=== PATIENT | female | born 1950 | race Two or more races ===

== ENCOUNTER 2018-03-06 09:35 | Outpatient (CLI) | payer OTHER | END 2018-03-06 09:40 | disposition home or self-care (01) | LOC: RX STUDY 09:35 | DX: K44.9 Diaphragmatic hernia without obstruction or gangrene (principal); K57.30 Diverticulosis of large intestine without perforation or abscess without bleeding; K31.7 Polyp of stomach and duodenum; K29.70 Gastritis, unspecified, without bleeding; K21.9 Gastro-esophageal reflux disease without esophagitis; K31.89 Other diseases of stomach and duodenum; K20.8 Other esophagitis; K64.8 Other hemorrhoids; K31.84 Gastroparesis ==